=== PATIENT | female | born 1985 | race Asian ===

== ENCOUNTER 2022-05-21 08:04 | Emergency (ER) | payer OTHER ==
[~2022-05-21] VITALS: Ht 167.6 cm; Wt 1120.4 kg
[2022-05-21 08:05] VITALS: TEMP 98
[2022-05-21 08:52] LABS: PLATELET COUNT 177 K/uL (152-353)
[2022-05-21 08:59] LABS: POTASSIUM 3.8 mmol/L (3.6-5.2)
[2022-05-21 09:30] VITALS: BP 128/78
== END 2022-05-21 09:30 | disposition home or self-care (01) ==
LOC: ED 08:04
PROVIDERS: Emergency Medicine
DX: E11.65 Type 2 diabetes mellitus with hyperglycemia (principal); Z79.84 Long term (current) use of oral hypoglycemic drugs; I10 Essential (primary) hypertension; R51.9 Headache, unspecified; E66.8 Other obesity
CPT/HCPCS: 80048; 84484; 85027; 93005; 99283

== ENCOUNTER 2022-11-02 14:11 | Emergency (ER) | payer OTHER ==
[~2022-11-02] VITALS: Ht 167.6 cm; Wt 103.9 kg
[2022-11-02 14:20] VITALS: TEMP 99.9
[2022-11-02 15:12] LABS: PLATELET COUNT 204 K/uL (152-353)
[2022-11-02 15:28] LABS: POTASSIUM 3.5 mmol/L (3.6-5.2); SODIUM 135 mmol/L (136-145)
[2022-11-02 16:35] VITALS: BP 147/89
== END 2022-11-02 16:35 | disposition home or self-care (01) ==
LOC: ED 14:11
PROVIDERS: Emergency Medicine
DX: I10 Essential (primary) hypertension (principal); E11.9 Type 2 diabetes mellitus without complications; R07.89 Other chest pain; R10.11 Right upper quadrant pain; Z20.822 Contact with and (suspected) exposure to COVID-19; F17.210 Nicotine dependence, cigarettes, uncomplicated
CPT/HCPCS: 80053; 80307; 81002; 81025; 82550; 84484; 85027; 87502; 87635; 87651; 93005; 99283; U0001

== ENCOUNTER 2022-12-13 10:02 | Outpatient (CLI) | payer OTHER ==
[2022-12-13 12:07] LABS: PLATELET COUNT 198 K/uL (152-353)
[2022-12-13 12:52] LABS: POTASSIUM 3.8 mmol/L (3.6-5.2); SODIUM 129 mmol/L (136-145)
== END 2022-12-13 19:14 | disposition home or self-care (01) ==
LOC: LABW 10:02
PROVIDERS: ATTEND Surgery
DX: K81.1 Chronic cholecystitis (principal)
CPT/HCPCS: 36415; 80053; 82150; 83690; 84702; 85027

== ENCOUNTER 2023-01-14 21:15 | Emergency (ER) | payer OTHER ==
[~2023-01-14] VITALS: Ht 167.6 cm; Wt 107.0 kg
[2023-01-14 21:31] VITALS: TEMP 99.5
[2023-01-14 22:40] VITALS: BP 162/87
== END 2023-01-14 22:40 | disposition home or self-care (01) ==
LOC: ED 21:15
DX: G89.18 Other acute postprocedural pain (principal); L76.82 Other postprocedural complications of skin and subcutaneous tissue; F17.210 Nicotine dependence, cigarettes, uncomplicated
CPT/HCPCS: 81002; 81025; 93005; 99282